=== PATIENT | female | born 1980 | race Hispanic/Latino ===

== ENCOUNTER → 2018-03-30 | Outpatient (CLI) | payer OTHER ==
--- NOTE | 2018-04-03 17:57 | Polysomnography ---
DATE OF STUDY: POLYSOMNOGRAPHY REPORT HISTORY OF PRESENT ILLNESS: Patient is a 37-year-old with a history of snoring as well as intermittent apnea at night and extreme daytime somnolence. INTERPRETATION: The patient came for a split night study. During the diagnostic portion of the study, the patient slept for 116 minutes out of 169.5 minutes. The sleep efficiency was 68.4%. The sleep onset latency was 9.5 minutes. The latency to REM was 88 minutes. Patient had 27 apneic events and 10 hypopneic events. The apnea-hypopnea index was 19.1 events per hour. The minimal saturation was 69%. The minimal heart rate was 60 beats per minute. Patient spent 30.5 minutes in REM sleep, which was 26.3% of the night. During the therapeutic portion of the night, the patient slept for 167 minutes out of 252 minutes. Sleep efficiency was 66.3%. The minimal saturation was 92%. Patient did have some leg movements. The minimal heart rate was 56 beats per minute. The [place] Sleep Score was 13. The polysomnography desensitizes the patient to CPAP and initiated CPAP at 4 cm of water pressure. The patient increased to CPAP to 12 cm of water pressure, but still had some nocturnal events and snoring. The patient switched to BiPAP, which was gradually increased to 16/11. At a setting of 16/11, the nocturnal events were successfully eliminated. IMPRESSION 1. Moderate obstructive sleep apnea. 2. Successful treatment of obstructive sleep apnea with BiPAP. RECOMMENDATIONS 1. BiPAP at a setting of 16/11 with a heated humidifier. 2. ResMed AirFit full facemask of a medium size. 3. Avoid alcohol or sedatives prior to retiring at night. 4. Achieve and maintain an ideal body weight. 5. Follow up in 3 months to ensure efficacy and compliance BiPAP. Job#: [id number] MELVI LIU
== END ==
LOC: SLEEP 21:22
DX: G47.30 Sleep apnea, unspecified (principal)
CPT/HCPCS: 95811